=== PATIENT | male | born 1940 | race Caucasian/White ===

== ENCOUNTER 2018-04-17 03:07 | Inpatient (IN) | payer MEDICARE, OTHER ==
[~2018-04-17] VITALS: Ht 165.1 cm; Wt 80.7 kg
[~2018-04-17 03:07] MED LIST: ACCUNEB SO1.25 MG/1 INH; ADVAIR 250-501 EACH IH; ALLOPURINOL 30300 M1 PO; AMARYL2 MG PO; ASA81BEC OR; CARDIZEM CD240 MG PO; CEFAZOLIN 1GM VI1 G1; CRESTOR10 MG PO; DEMADEX20 MG PO; DILTIAZEM 24HR240 MG PO; FIBER500 MG PO; FINASTERIDE5 MG PO; FISH OIL 1,001000 M2 PO; FLOMAX0.4 MG PO; HYDROXYZINE HCL25 M1 PO; IRON325 PO; K-PHOS ORIGINA500 MG PO; LANTUSSOLASTAR SUBQ; LASIX 40 MG TAB40 M1 GT; LASIX 40 MG TAB40 M2 PO; LYRICA100 MG PO; NICOTINE TRANSD14 M1 TD; NOVOLOG100 UNIT/1 SUBQ; OMEPRAZOLE40 MG PO; PREDNISONE 5 MG5 MG PO; PROTONIX40 M1 PO; PROTONIX40 M2 PO; SPIRIVA INH; STOOL SOFTENER100 M1 PO; TRAZODONE HCL50 MG PO; TRINATE; URECHOLINE 25 M25 M1 OR; VITAMINC500 PO; ZETIA10 MG PO
[2018-04-17 04:44] VITALS: BP 163/60
[2018-04-17 07:40] VITALS: BP 170/52
[2018-04-17 09:23] LABS: HEMATOCRIT 31.3 % (42.0-52.0); HEMOGLOBIN 10.8 gm/dL (14.0-18.0); MCH 35.5 pg (26.0-34.0); MCHC 34.3 g/dL (28.0-37.0); MCV 103.4 fL (80.0-100.0); MPV 8.7 fl. (7.2-11.1); RBC 3.03 mil/uL (4.50-6.00); RDW-CV 14.8 % (10.5-14.5); WBC 7.5 thou/uL (4.0-11.0)
[2018-04-17 09:29] LABS: ALBUMIN 2.9 g/dL (3.4-5.0); CALCIUM 8.3 mg/dL (8.5-10.1); CREATININE 2.1 mg/dL (0.6-1.3); POTASSIUM 4.4 mmol/L (3.5-5.1); TOTAL BILIRUBIN 0.2 mg/dL (<0.1-1.0); TOTAL PROTEIN 6.2 g/dL (6.4-8.2)
--- NOTE | 2018-04-17 11:00 | NUR ---
PT O X4, ABLE TO COMMUNICATE NEEDS TO STAFF. MARINE ENGINEER IN PLACE, SB. O2 SATS >92% ON RA. ASSESSMENT COMPLETE, DOCUMENTED. MEDS PER MAR. PT NPO UNTIL CARDIOLOGY CONSULT COMPLETE. DR. SEN STATES PT MAY HAVE CLEAR LIQUIDS. OFFERED APPLE JUICE, ICE WATER, PT BRYSON WELL. CALL LIGHT WITHIN REACH. BED LOW, LOCKED.
[2018-04-17 11:41] VITALS: BP 170/52
[2018-04-17 11:55] VITALS: BP 158/46
--- NOTE | 2018-04-17 12:31 | NUR ---
MET WITH PT TO DISCUSS HOME SITUATION/DC PLANNING. PT STATES HE LIVES ALONE. HIS SON LIVES [place] AND COMES OVER ON THE WEEKENDS TO ASSIST PT WITH NEEDS. DTR LIVES [place]LO[place] BUT PT STATES SHE HAS HEALTH ISSUES AND HE DOESN'T LIKE TO 'BOTHER HER.' PT STATES HE IS NORMALLY INDEPENDENT AT HOME, STILL DRIVES, DOES OWN ADLS AND CARES FOR SELF. REPORT HAS BEEN DIZZY LATELY AND BEEN HAVING MORE DIFFICULTY MANAGING, USING WALKER MORE. HAS WALKER, CANE, CPAP, O2 AND INHALERS. PER CHART, HE HAS BEEN HOSPITALIZED HERE IN PAST BUT PT STATED HE DIDN'T THINK HE HAD. DENIES EVER HAVING HH ALSO. HE PLANS TO RETURN HOME AT DC. WILL FOLLOW
--- NOTE | 2018-04-17 14:37 | EKG ---
[place] [address] ELECTROCARDIOGRAM REPORT Name: RODOLFO MARTINEZ Room: [address] ADM IN M.R.#: [id number] Admission: 04/17/18 Attend Phys: Walter Gipson MD Discharge: Date of : 38 Report #: [id number] THIS REPORT FOR: //name// [facility] Test Date: 2018-04-17 Test Time: 04:56:54 Pat Name: RODOLFO MARTINEZ Department: Room: [address] Gender: M Digital Asset Specialist: WLEPGABRIELA : 1940 Requested By: Walter Gipson Order Number: [id number] Albina MD: Juan Jose Gannon Measurements Intervals [place] Rate: 40 P: 100 AK: 142 QRS: 69 QRSD: 104 T: 68 QT: 533 QTc: 435 Interpretive Statements sinus rhythm with Mobitz I block junctional escape beats nonspecific t wave changes No previous ECG available for comparison Electronically Signed On 04-17-2018 14:37:41 CDT by Juan Jose Gannon [email or web address] <ELECTRONICALLY SIGNED> By: Juan Jose Gannon MD, [facility] 04/17/18 1437 [id number] [id number] Juan Jose Gannon MD, [facility] /EPI
[2018-04-17 16:45] VITALS: BP 174/66
--- NOTE | 2018-04-17 18:19 | CARD ---
[address] [address] CARDIAC CATH REPORT Name: RODOLFO MARTINEZ Room: [address] IN M.R.#: [id number] Admission: 04/17/18 Attend Phys: Walter Gipson MD Discharge: Date of : 38 Report #: [id number] THIS REPORT FOR: //name// APPROVED REPORT Study performed: 04/17/2018 13:45:01 Patient Status: In-Patient Room #: 231 Event Personnel: Juan Jose Gannon Motel Operator, Katiuska Holder RN Soil Sort Worker, Nicole Ceballos Monitor, Laith Villa (R) Scrub Exam: Insertion of Dual Chamber Permanent Pacemaker Indications: Mobitz I (Wenkebach) The patient is a 77 year-old male with a history of Dizziness and vertigo. Patient Info Anticoagulant Therapy: asa Conscious Sedation Start time: 14:48 End Time: 16:37 Sedation by Anesthesia. Implanted Devices: dual chamber MRI compatible dual chamber pacemaker and leads Procedure The patient underwent informed consent. We discussed the details of the procedure including the risks, which include, but not limited to bleeding, infection, vascular damage, cardiac perforation, and pneumothorax. He understood these risks and was willing to proceed. As such, he was brought to the EP/Cardiac Catheterization laboratory in a fasting and sedated state and prepped and draped in a sterile fashion, received IV antibiotics prior to initiation of the procedure and a venogram was performed showing patency of the left axillary vein. The patient underwent MAC anesthesia, with no anesthesia related complications. The patient was brought to the EP/Cardiac Catheterization laboratory and the left chest and shoulder were prepped and draped in a sterile manner. During this case, Fluoroscopy and low osmolar contrast were used for imaging. The left subclavian region was infiltrated with 2% Lidocaine subcutaneous anesthesia. A transverse [place] [address] CARDIAC CATH REPORT Name: JUANRODOLFO Room: [address] IN M.R.#: [id number] Admission: 04/17/18 Attend Phys: Walter Gipson MD Discharge: Date of : 38 Report #: [id number] upper chest cavity. The subcutaneous pocket was formed via blunt dissection. Percutaneous venous access was achieved and an introducer sheath was inserted into the left Subclavian vein. Sheaths were positions using the modified Seldinger technique Through the introducer sheaths the atrial and ventricular lead wires were positioned in the right atrial appendage and right ventricular apex respectively. Utilizing fluoroscopic guidance, the atrial and ventricular lead wires were advanced over the wires and positioned in the right atria and right ventricle respectively. Capturing and sensing thresholds were verified. Electrode Parameters P Wave: 1.2 mv R Wave: 6.1 mv Atrial Threshold: 0.8 v @ 0.4 ms Ventricular Threshold: 0.6 v @ 0.4 ms Atrial Resistance: 448 ohm Ventricular Resistance: 526 ohm Dual Chamber The atrial and ventricular leads were attached to the appropriate receptacles on the pulse generator and set screws firmly tightened to insure adequate contact and stability. The lead and pulse generator were placed into the subcutaneous pocket. Sharp and sponge counts were confirmed to be correct. At this time the pocket was closed subcutaneously with a 0 Vicryl and the skin was closed with a 4.0 Vicryl. The operative site was dressed in sterile fashion with skin affix and the patient was transferred to the floor in stable condition. Complications The patient tolerated the procedure well and there were no complications associated with the procedure. Conclusion successful placement of a dual chamber pacemaker <ELECTRONICALLY SIGNED> By: Juan Jose Gannon MD, FACC 04/17/181817 17 17Dadian Gannon MD, FACC /INF
--- NOTE | 2018-04-17 18:30 | NUR ---
PT BACK TO UNIT FROM PACEMAKER PROCEDURE AT 1635. O X4, NO C/O PAIN OR DISTRESS. INCISION TO L UPPER CHEST APPROXIMATED WELL, NO DRSG, NO DRNG, ERYTHMATOUS TARA-WOUND AREA. VS OBTAINED. PT TOLERATED DIET WELL. PT'S SON AT BEDSIDE. PT UP WITH ASSIST TO BR, AMBULATING WITH WALKER BACK TO CHAIR WITH SBS. PT C/O FEELING SLIGHTLY DIZZY WHILE SITTING IN CHAIR BUT DENIED FEELING LIKE HE WOULD PASS OUT. PT BACK TO BED, CALL LIGHT IN REACH.
[2018-04-17 20:00] VITALS: BP 106/66
[2018-04-18 00:40] VITALS: BP 174/65
--- NOTE | 2018-04-18 02:44 | NUR ---
ASSUMED PT CARE AT 1930. ASSESSMENT COMPLETED CHARTED. ABLE TO MAKE NEEDS KNOWN. PT HAD BEEN SLEEPY SINCE START OF SHIFT AND DRIFTED TO SLEEP DURING VITALS AND WHILE TRYING TO GIVE NIGHT MEDICATION. NEW PACEMAKER INSERTED TODAY. INSICION IS CLEAN, DRY AND INTACT BUT RAISED AND HAS BRUISING BENEATH AND AROUND AREA. NO C/O PAIN OR DISCOMFORT. LEFT ARM SLING IN PLACE. RIGHT SHOULDER IS MESSED UP FROM PREVIOUS ROTATOR CUFF SURGERY. HEARTRATE IS STAYING ABOUT 60-65. WILL CONTINUE TO MONITOR.
[2018-04-18 04:58] LABS: HEMATOCRIT 35.7 % (42.0-52.0); NUCLEATED RBCS 0 /100WBC
[2018-04-18 05:01] VITALS: BP 154/64
[2018-04-18 05:01] LABS: MCHC 33.5 g/dL (28.0-37.0); MCV 104.4 fL (80.0-100.0); MPV 9.1 fl. (7.2-11.1); PLATELET COUNT* 181 thou/uL (150-400); RBC 3.43 mil/uL (4.50-6.00); RDW-CV 14.5 % (10.5-14.5); WBC 9.9 thou/uL (4.0-11.0)
[2018-04-18 05:10] LABS: CALCIUM 8.8 mg/dL (8.5-10.1); CREATININE 2.1 mg/dL (0.6-1.3); POTASSIUM 4.3 mmol/L (3.5-5.1)
[2018-04-18 08:00] VITALS: BP 140/61
[2018-04-18 08:23] LABS: ABSOLUTE BASOPHILS 0.1 thou/uL (0.0-0.2); ABSOLUTE EOSINOPHILS 0.5 thou/uL (0.0-0.7); ABSOLUTE LYMPHOCYTES 1.2 thou/uL (0.8-5.3); ABSOLUTE MONOCYTES 0.8 thou/uL (0.0-1.2); ABSOLUTE NEUTROPHILS 7.3 thou/uL (1.6-8.1)
[2018-04-18 08:24] LABS: PLATELET ESTIMATE ADEQUATE
[2018-04-18] MEDS ORDERED: DILTIAZEM 24HR180 M1 PO (10:45)
[2018-04-18] MEDS ORDERED: ACETAMINOPHEN325 M1 PO (10:45)
[2018-04-18] MEDS ORDERED: PROPAFENONE 15150 MG PO (10:45)
[2018-04-18 12:00] VITALS: BP 132/53
--- NOTE | 2018-04-18 12:25 | NUR ---
ASSUMED CARE OF PATIENT THIS AM AT 0730. PATIENT IS ALERT AND ORIENTED X 4. HE DENIES PAIN THIS AM. PATIENT SOMEWHAT ANXIOUS ABOUT HIS HEART RATE. PACEMAKER PLACEMENT SITE BRUISED BUT SITE IS INTACT. TELE SHOWS SR WITH BBB WITH VERY SMALL A PACED SPIKES. PATIENT HAS KEPT O2 ON AT 2 LITERS HE IS TAKING HIS DIET WELL. PATIENT ASSISTED UP TO THE CHAIR WITH PT. SLING IS IN PLACE TO HIS LEFT ARM. PATIENT IS WAITING TO SEE CARDIOLOGY. HIS SONE IS AT THE BEDSIDE.
[2018-04-18 14:28] VITALS: BP 132/53
[2018-04-18 15:37] VITALS: BP 132/53
--- NOTE | 2018-04-18 16:14 | NUR ---
PT.TO BE DISCHARGED TODAY WITH HOME HEALTH NURSING AND PT. WOOD,RN CLARIFIED THE ORDER WITH . GISELLA SAW PT.AND SON. GISELLA HAD PRINTED OFF AGENCIES THAT GO TO [facility]. [phone]. SHE TOOK DOWN INFORMATION AND SAID THEY COULD ACCEPT PT.TO SERVICE. FAXED INFO TO [phone].
--- NOTE | 2018-04-19 14:57 | EKG ---
[place] [address] ELECTROCARDIOGRAM REPORT Name: RODOLFO MARTINEZ Room: [address] DIS IN M.R.#: [id number] Admission: 04/17/18 Attend Phys: Walter Gipson MD Discharge: 04/18/18 Date of : 38 Report #: [id number] THIS REPORT FOR: //name// [facility] Test Date: 2018-04-18 Test Time: 08:39:23 Pat Name: RODOLFO MARTINEZ Department: Room: [address] Gender: M Pewter Caster: : 1940 Requested By: Juan Jose Gannon Order Number: [id number] Reading MD: Mohamud Arreola Measurements Intervals [place] Rate: 63 P: MT: 83 QRS: -44 QRSD: 179 T: 113 QT: 505 QTc: 518 Interpretive Statements Atrial-ventricular dual-paced complexes No further analysis attempted due to paced rhythm Compared to ECG 04/17/2018 04:56:54 Sinus rhythm no longer present T-wave abnormality no longer present Electronically Signed On 04-19-2018 14:57:05 CDT by Mohamud Arreola [email or web address] <ELECTRONICALLY SIGNED> By: Mohamud Arreola MD, FACC 04/19/18 1457 0839 0839 Mohamud Arreola MD, FACC /EPI
--- NOTE | 2018-04-19 15:12 | CON ---
[address] [address] CONSULTATION Name: RODOLFO MARTINEZ Room: [address] IN M.R.#: [id number] Admission: 04/17/18 Attend Phys: Walter Gipson MD Discharge: 04/18/18 Date of : 38 Report #: [id number] THIS REPORT FOR: //name// CC: Walter Lam DO DATE OF SERVICE: 04/17/2018 HISTORY OF PRESENT ILLNESS: The marko is a 77-year-old single white male who I was asked to see in the hospital today after he was noted to have a slow heart rate. The patient has an extensive past medical history. He apparently had a history of coronary angioplasty and eventually underwent coronary artery bypass surgery at [facility] more than 25 years ago. He has actually been followed by my partner, Dr. Lee in the Cardiology Clinic. The patient apparently has had a history of atrial flutter dating back to 2013. He has had occasional falls in the past. He was actually admitted here to [place] in 2016 after a dizzy spell. He apparently had an episode of second degree heart block with 2:1 conduction with rates in the 30s. At that time, the patient was on diltiazem. He was seen by my partner, Dr. Arreola at that time and he was taken off of diltiazem. The patient remained in sinus rhythm and was discharged. He actually had an ECG done in 10/2017. It appears to show atrial flutter with a controlled ventricular response rate of only 50 beats per minute. The patient was actually seen by my partner, Dr. Lee in the Cardiology Clinic in November. He had an echocardiogram that showed preserved left ventricular function. He apparently had had a stress test in the past that showed a fixed defect. The patient had a carotid Doppler study on his visit in November that showed a 50%-69% stenosis, which was unchanged from previous Dopplers. The patient states that since that time, he has not been very active. The patient states he continues to smoke 2 packs of cigarettes a day, does have oxygen use if needed. He has not been very active. He has complained of fatigue recently. Yesterday, he felt lightheaded. He went to the Emergency Room in [place], [place] and was noted to be bradycardic. He was transferred by ambulance here to [place] and admitted last night. He denies any fever, cough, chest pain, increased shortness of breath and edema. PAST MEDICAL HISTORY: Otherwise significant for an appendectomy, right shoulder surgery, cataract extraction. He has had a skin cancer removed. He has a history of diabetes, hypertension. There is no history of hyperlipidemia. MEDICATIONS: This time at home consist of albuterol inhaler, allopurinol, aspirin, Urecholine, Cardizem-CD, Zetia, iron pills, Advair, Lasix, his insulin. ALLERGIES: HE HAS A PREVIOUS INTOLERANCE TO PENICILLIN AND APPARENTLY PLAVIX. FAMILY HISTORY: [place] [address] CONSULTATION Name: RODOLFO MARTINEZ Room: [address] [id number] Admission: 04/17/18 Attend Phys: Walter Gipson MD Discharge: 04/18/18 Date of : 38 Report #: [id number] SOCIAL HISTORY: He is , lives by himself in [place], [place]. He is a retired building construction engineer. He lives by himself who smokes 2 packs of cigarettes a day. No alcohol abuse. REVIEW OF SYSTEMS: He has had no history of stroke. He does have a carotid stenosis. He has COPD. He has had a peptic ulcer. He has chronic kidney disease. He has had multiple skin cancer removed in the past. He has a history of psoriasis. PHYSICAL EXAMINATION: GENERAL: Revealed an elderly slow moving male who appeared in no acute distress. VITAL SIGNS: He had a blood pressure of 160/70, pulse 40. He is afebrile. HEENT: He is anicteric. Conjunctivae pink. Mucous membranes are moist. NECK: Veins do not appear distended. Neck is supple. CHEST: Coarse breath sounds. CARDIOVASCULAR: Regular bradycardia, grade 2 systolic ejection murmur along the left sternal border. ABDOMEN: Soft. EXTREMITIES: Had no edema. Dorsalis pedis pulse 1+ bilaterally. SKIN: He had a very dry skin. NEUROLOGIC: He is very slow moving. DIAGNOSTIC DATA: ECG last night showed sinus bradycardia at 40 beats per minute. There appeared to be episodes of heart block, no ST or T-wave change. LABORATORY DATA: Actually done in [place] [facility] and lab is not available at this time. IMPRESSION AND RECOMMENDATIONS: 1. Sick sinus syndrome. The patient has symptomatic bradycardia. Recommend pacemaker. 2. History of Mobitz type I AV block. I would hold diltiazem at this time. 3. History of atrial flutter. I would consider antiarrhythmic therapy. The patient does not appear to be a very good candidate for anticoagulation. 4. Chronic obstructive pulmonary disease. 5. Tobacco abuse. 6. Hypertension. The patient has been on calcium michele. 7. Carotid stenosis. Asymptomatic. The patient does take an aspirin a day. 8. Psoriasis. 9. Previous removal of a skin cancer. [facility] [address] [facility] [place] [address] CONSULTATION Name: RODOLFO MARTINEZ Room: [address] IN M.R.#: [id number] Admission: 04/17/18 Attend Phys: Walter Gipson MD Discharge: 04/18/18 Date of : 38 Report #: [id number] 10. Chronic kidney disease. In the past, the patient's creatinine has run approximately 2.0. He is followed by Dr. Sarkar in the Nephrology Clinic. <ELECTRONICALLY SIGNED> By: Juan Jose Gannon MD, FACC 04/19/18 1512 0913 [id number] Gannon MD, FACC /nt
== END 2018-04-18 15:50 | disposition home health service (06) | DRG 243 ==
LOC: M.2W 03:07
PROVIDERS: ADMIT Internal Medicine
PROC: 02H63JZ Insertion of Pacemaker Lead into Right Atrium, Percutaneous Approach (ICD-10-PCS; principal; 2018-04-17)
PROC: 0JH606Z Insertion of Pacemaker, Dual Chamber into Chest Subcutaneous Tissue and Fascia, Open Approach (ICD-10-PCS; principal; 2018-04-17)
PROC: 02HK3JZ Insertion of Pacemaker Lead into Right Ventricle, Percutaneous Approach (ICD-10-PCS; principal; 2018-04-17)
PROC: B51N1ZZ Fluoroscopy of Left Upper Extremity Veins using Low Osmolar Contrast (ICD-10-PCS; principal; 2018-04-17)
DX: I49.5 Sick sinus syndrome (principal); I48.92 Unspecified atrial flutter; E44.1 Mild protein-calorie malnutrition; N17.9 Acute kidney failure, unspecified; J44.9 Chronic obstructive pulmonary disease, unspecified; I65.29 Occlusion and stenosis of unspecified carotid artery; L40.9 Psoriasis, unspecified; I25.10 Atherosclerotic heart disease of native coronary artery without angina pectoris; K21.9 Gastro-esophageal reflux disease without esophagitis; E78.00 Pure hypercholesterolemia, unspecified; E11.51 Type 2 diabetes mellitus with diabetic peripheral angiopathy without gangrene; I12.9 Hypertensive chronic kidney disease with stage 1 through stage 4 chronic kidney disease, or unspecified chronic kidney disease; M10.9 Gout, unspecified; N18.3 Chronic kidney disease, stage 3 (moderate); E11.22 Type 2 diabetes mellitus with diabetic chronic kidney disease; F17.210 Nicotine dependence, cigarettes, uncomplicated; Z90.49 Acquired absence of other specified parts of digestive tract; Z98.49 Cataract extraction status, unspecified eye; Z88.0 Allergy status to penicillin; Z88.8 Allergy status to other drugs, medicaments and biological substances; Z82.49 Family history of ischemic heart disease and other diseases of the circulatory system; Z95.1 Presence of aortocoronary bypass graft; I25.2 Old myocardial infarction; Z79.4 Long term (current) use of insulin; Z79.899 Other long term (current) drug therapy; Z23 Encounter for immunization